=== PATIENT | female | born 1985 | race Caucasian/White ===

== ENCOUNTER 2016-03-01 04:56 | Inpatient (IN) | payer OTHER ==
[2016-03-01] MEDS ORDERED: CEFAZOLIN 1 GM VIAL IV ONE (05:00)
[2016-03-01] MEDS ORDERED: SODIUM CHLORIDE 0.9% 3 ML FLUSH FLUSH PRN ×2 (05:00→08:26)
[2016-03-01] MEDS ORDERED: LR 1,000 ML IV SCH (05:00)
[2016-03-01] MEDS ORDERED: SODIUM CHLORIDE 0.9% 3 ML FLUSH FLUSH SCH (05:00)
[2016-03-01 05:39] LABS: MPV 7.8 fL (7.4-10.4)
[2016-03-01 05:55] VITALS: BMI 39.9
[2016-03-01] MEDS: LR 1,500 ML IV ONE ×2 (05:58→07:06)
[2016-03-01] MEDS ORDERED: MEPERIDINE 25 MG/ML TUBEX IV PRN (06:29)
[2016-03-01] MEDS ORDERED: HYDROmorphone 1 MG INJECTION IV PRN ×2 (06:29)
[2016-03-01] MEDS ORDERED: FENTANYL 100 MCG/2 ML VIAL IV PRN ×2 (06:29)
[2016-03-01] MEDS ORDERED: hydrALAZINE 20 MG/ML VIAL IV PRN (06:29)
[2016-03-01] MEDS ORDERED: ONDANSETRON HCL 4 MG ODT TAB PO PRN (06:29)
[2016-03-01] MEDS ORDERED: LABETALOL 20 MG/4 ML SYRINGE IV PRN (06:29)
[2016-03-01] MEDS ORDERED: ONDANSETRON HCL 4 MG/2 ML VIAL IV PRN ×2 (06:29→08:26)
--- NOTE | 2016-03-01 06:31 | HIM.ANES ---
Anesthesia Evaluation & Plan Diagnoses: HISTORY OF UTERINE SCAR FROM PREVIOUS SURGERY (03/01/16) - Focused Review of Systems Cardiac History: No: Hx Cardiac Disorders HEENT: No: Other HEENT Problems Gastrointestinal: No: Hx Gastrointestinal Disorders Neurological/Musculoskeletal: No: Hx Neurological Disorders Psychological: No Hx Mental/Emotional Disorders Endocrine: Yes: Hx Diet Controlled Diabetes Blood/Autoimmune: No: Hx Blood Transfusions, Hx Anemia, Hx AIDS, Hx Sickle Cell Disease Smoking Status: Never smoker Past Social History: Denies: Alcohol Use Hx Stress Test (date): No Hx Echocardiogram (date): No Hx Chest Xray (date): No - Focused Physical Exam NPO since: MIDNIGHT Mallampati: Class II Thyromental Distance: Greater than 3 Neck: Full Range of Motion Dental: Normal - no significant findings Cardiovascular/Chest: Normal Respiratory: Lungs clear Any problems with anesthesia, including nausea and vomiting?: No Any relatives with a history of Malignant Hyperthermia?: No Beta Juan A given (if appropriate): N/A Other: CBC/BMP/Other 03/01/16 05:20 Allergies Allergy/AdvReac Type Severity Reaction Status Date / Time flu vaccine 2010- Allergy Unknown/See Verified 03/01/16 05:26 *RETIRED-07/20/12 Comments [flu vaccine [id number](18 yr +)] Home Medications Medication Instructions Recorded Last Taken Type Vits W-Ca,Fe,FA(<1Mg) 1 each PO 03/01/16 02/29/16 12:00 History [] Height and Weight Patient's height 5 ft 4 in Patient's weight 110.677 kg BMI 39.9 Vital Signs Temperature 98.1 F 03/01/16 06:15 Pulse Rate 86 03/01/16 06:15 Respiratory Rate 18 03/01/16 06:15 Blood Pressure 171/95 03/01/16 06:15 Pulse Oxygen Saturation 99 03/01/16 06:15 - Anesthetic Plan Anesthesia Type: Spinal ASA Class: 2 -: I have examined this patient and reviewed the medical record. The patient has been assessed prior to anesthesia. Risks and benefits of anesthesia and anesthetic technique options have been discussed and all questions answered. The patient accepts the risk and desires me to proceed with the planned anesthetic.
[2016-03-01] MEDS ORDERED: Vaccine Screening Complete SCH (07:00)
--- NOTE | 2016-03-01 07:04 | SC.ANESPOS ---
Post-Anesthesia Note LOC: Fully Awake Post-Anesthesia Assessment: Awake, Returned to Baseline, Hemodynamically Stable , Pain Control Adequate Phase I & II Recovery Complete: Yes (Spinal resolving) Apparent Anesthesia Complication: No : N - Vital Signs Blood Pressure: 171/95 Pulse: 86 Resp Rate: 18 O2 Sat: 99 Temp: 98.1 F
--- NOTE | 2016-03-01 07:15 | HISTPHYS ---
- HISTORY OF PRESENT ILLNESS Age: 30 Estimated Due Date: 03/08/16 Gestational Age: 39 : 2 Para: 1 Patient Presents to:: Labor & Delivery Presents for:: Current : No Complications - REVIEW OF SYSTEMS Reports/Denies: Denies: Complaints Pain: Reports: None - ALLERGIES Allergies Allergy/AdvReac Type Severity Reaction Status Date / Time flu vaccine 2010- Allergy Unknown/See Verified 03/01/16 05:26 *RETIRED-07/20/12 Comments [flu vaccine [id number](18 yr +)] - CURRENT MEDICATIONS Home Medication List Vits W-Ca,Fe,FA(<1Mg) [] 1 each PO 03/01/16 [History] - PAST MEDICAL HISTORY Reports: No Significant History - PAST SURGICAL HISTORY Reports: Section - FAMILY HISTORY Family History: Noncontributory - SOCIAL HISTORY Smoking Status: Never smoker Social History: Denies: Amphetamine Use, Alcohol Use, Barbiturate Use, Benzodiazipine Use, Cocaine Use, Heroin Use, Marijuana Use, Methadone Use, MDMA (Ecstasy) Use, Substance Use Disorder - GENITOURINARY HISTORY HX : 2 Para: 1 Live Deliveries (# of pregnancies resulting in a live ): 1 1 Sex: Female Weight: 8-4 Weeks Gestation: 39-5 Complications with or Delivery: Reports: Diabetes, High Blood Pressure - PHYSICAL EXAM Vital Signs:: Temperature: 98.1 F (03/01/16 07:04) HR: 86 (03/01/16 07:04) RR: 18 (03/01/16 07:04) BP: 171/95 (03/01/16 07:04) Pulse Ox: 99 (03/01/16 07:04) GENERAL: Alert, Oriented, No Acute Distress HEENT: Normal CARDOVASCULAR/CHEST: Normal RESPIRATORY: Normal - CTA ABDOMEN: Gravid Fundal Height (cm): 39 GENITOURINARY: Normal. negative: Lesions MUSCULOSKELETAL: Normal EXTERMITIES: Moves All Extremeties. negative: Edema - ASSESSMENT (ACTIVE PROBLEMS) (1) Term Acute Z34.80 - ENCOUNTER FOR SUPRVSN OF NORMAL , UNSP TRIMESTER (2) Previous delivery affecting Acute O34.219 - MATERNAL CARE FOR UNSP TYPE SCAR FROM PREVIOUS DEL - PLAN Admit Other Plan: 30 yo at term presents for repeat ltcs and btl. Admit, proceed with surgery .
[2016-03-01 07:41] LABS: SEG NEUTROPHIL 66 % (45-76)
[2016-03-01] MEDS ORDERED: OXYTOCIN 1,000 ML IV ONE ×2 (08:13→08:26)
[2016-03-01] MEDS ORDERED: HYDROmorphone 50 ML IV ONE (08:13)
[2016-03-01] MEDS ORDERED: LANOLIN OINTMENT 0.25 OZ TUBE TOP ONE (08:23)
[2016-03-01] MEDS ORDERED: ZOLPIDEM TARTRATE 5 MG TAB PO PRN (08:26)
[2016-03-01] MEDS ORDERED: HYDROmorphone 50 ML IV PRN (08:26)
[2016-03-01] MEDS ORDERED: OXYCODONE HCL 5 MG TABLET PO PRN (08:26)
[2016-03-01] MEDS ORDERED: LANOLIN OINTMENT 0.25 OZ TUBE TOP PRN (08:26)
[2016-03-01] MEDS ORDERED: Pharmacy Order Set Alert SCH (09:00)
--- NOTE | 2016-03-01 09:33 | HIMOPRPT ---
DATE OF PROCEDURE: DATE OF PROCEDURE: 03/01/16 PREOPERATIVE DIAGNOSIS: 1. Intrauterine at [39 weeks]. 2. Previous desires repeat. 3. Desires permanent sterilization. POSTOPERATIVE DIAGNOSIS: 1. Intrauterine at [39 weeks]. 2. Previous desires repeat. 3. Desires permanent sterilization. PROCEDURE: Repeat low transverse via Pfannenstiel incision. Bilateral tubal ligation via modified Loly method. SURGEON: Elida Doss MD. ANESTHESIA: [spinal] FINDINGS: Vigorous [female] , [7] pounds [8] ounces with Apgars of [8] and [9]. COMPLICATIONS: None. ESTIMATED BLOOD LOSS: 500 mL. URINE OUTPUT: [200] mL of clear urine. PROCEDURE IN DETAIL: Patient was taken to the operating room, anesthesia found be adequate. She was prepped and draped in a usual sterile fashion with left lateral tilt. A Pfannenstiel incision was made with scalpel, carried down to the fascia. The fascia was nicked in midline and the incision extended laterally with Peraza scissors. The fascia was elevated up, dissected off rectus muscles. Rectus muscles were in midline, peritoneum was identified and entered. Peritoneal incision was extended superiorly and inferiorly with good visualization of bladder. Bladder flap was created with blunt sharp dissection. The lower uterine segment was incised in transverse fashion with scalpel extended bluntly. Infant's head was delivered atraumatically. The nose and mouth were suctioned bulb suction. Cord clamped and cut and infant handed off to awaiting nursery personnel. Placenta was removed. The uterus was exteriorized and cleared of all clots. The uterine incision was closed with #1 chromic at this time. Attention turned to fallopian tubes where a 3 centimeter segment was suture ligated with 0 plain gut suture and excised. The uterus was returned to the abdomen. Hemostasis verified. Tubal sites were intact and hemostatic. Clots removed from the gutters. The fascia was closed with 0 PDS. Subcuticular fat was closed with 0 plain gut suture. Skin was closed with 4-0 monocryl in subcuticular fashion. Dermabond was applied to the skin site. Sponge, laps, and counts correct x2. The patient tolerated well. ANESTHESIA: Spinal Anesthesia
--- NOTE | 2016-03-01 09:34 | OBDELNOTE ---
Delivery Note - Problem/Diagnosis (1) Term Status: Acute (2) Previous delivery affecting Status: Acute (3) delivery delivered Status: Acute (4) Single live Status: Acute (5) Sterilization Status: Acute - Admitting Diagnosis Reason for Visit: Admission Date: 03/01/16 Admission time: 05:43 Gestational Age: 39 - Procedures Procedure(s): Non-Stress Test Labor Anesthesia/Analgesia: Spinal Anesthesia Date: 03/01/16 Vacuum Assist Delivery Presentation: Vertex Episiotomy: None Laceration: None : Repeat Reason: Prior Low Transverse Section Skin Incision: Pfannenstiel Uterine Incision: Low Transverse EBL: 500 Other Intrapartum Procedures: Tubal Ligation Fluid: Clear Placenta: Manual Removal Description: Normal Cord: 3 Vessels - Procedures Procedures: None - Data Sex: Female Weight: 3.402 kg (1min): 8 (5min): 9 Feeding Plans for Infant: Breast Complications: No Complications to:: LDRP/Mother's Room - /Operative Complications /Op Complications: None Discharge Planning - REASON FOR ADMISSION Patient Presents to:: Labor & Delivery Reason for Visit: - DISCHARGE INSTRUCTIONS
--- NOTE | 2016-03-01 09:35 | PCM.DCS92 ---
<Elida Doss - Last Filed: 03/01/16 09:34> - Primary/Secondary Discharge Diagnoses (1) Term Acute Z34.80 - ENCOUNTER FOR SUPRVSN OF NORMAL , UNSP TRIMESTER (2) Previous delivery affecting Acute O34.219 - MATERNAL CARE FOR UNSP TYPE SCAR FROM PREVIOUS DEL (3) delivery delivered Acute O82 - ENCOUNTER FOR DELIVERY WITHOUT INDICATION (4) Single live Acute Z37.0 - SINGLE LIVE (5) Sterilization Acute Z30.2 - ENCOUNTER FOR STERILIZATION - HOSPITAL COURSE /Op Complications: None - DISCHARGE INSTRUCTIONS Discharge Disposition: Home Discharge Condition: Good Cognitive Discharge Status: Unimpaired Fuctional Discharge Status: Independent Patient Leaving with Prescriptions?: Yes Home Medications/ New Prescriptions: New Ibuprofen Tablet [Motrin] 800 mg PO TID #30 tab Oxycodone Immediate Release [Oxycodone Immediate Release (OxyIR)] 5 mg PO Q4H PRN #30 tab PRN Reason: Pain Nifedipine [Procardia Xl] 30 mg PO DAILY #30 tab.er.24 Continue Vits W-Ca,Fe,FA(<1Mg) [] 1 each PO Referrals: Elida Doss MD [Staff Physician] - 03/15/16 9:45 am - Diet Diet at Discharge: Regular - Activity Activity: Pelvic Rest, No Driving No Driving for: 2 weeks - Instructions Call Physician for: Sudden/Sever Chest Pain, Foul Smelling Discharge, Pain/ Redness in Calf/Leg, Temperature Above 100.4, Drainiage from Wound Additional Instructions: Come to office tomorrow for blood pressure check - DC Summary Notes Discharge Medications: *See "Discharge Medication List" for a complete list of Home Medications and Discharge Medications.* Obstetric Hospital Course - Admitting Diagnosis Reason for Visit: Admission Date: 03/01/16 Admission time: 05:43 Gestational Age: 39 - Procedures Procedure(s): Non-Stress Test Labor Anesthesia/Analgesia: Spinal Anesthesia Date: 03/01/16 Vacuum Assist Delivery Presentation: Vertex Episiotomy: None Laceration: None : Repeat for: Previous Uterine Surgery Skin Incision: Pfannenstiel Uterine Incision: Low Transverse EBL: 500 Fluid: Clear Placenta: Manual Removal Description: Normal Cord: 3 Vessels - Procedures Procedures: None - Infant Data Infant Sex: Female Weight: 3.402 kg (1min): 8 (5min): 9 Feeding Plans for Infant: Breast Complications: No Complications [place] to:: LDRP/Mother's Room - /Operative Complications /Op Complications: None <Cortney Salazar - Last Filed: 03/03/16 17:21> - Primary/Secondary Discharge Diagnoses (1) care following delivery Acute Z39.2 - ENCOUNTER FOR ROUTINE FOLLOW-UP - Incision Incision, Lacerations, or Tears: Yes - DC Summary Notes Discharge Medications: *See "Discharge Medication List" for a complete list of Home Medications and Discharge Medications.*
[2016-03-01] MEDS ORDERED: OXYTOCIN 10 UNITS/ML VIAL IM ONE (10:00)
[2016-03-01] MEDS ORDERED: ONDANSETRON HCL 4 MG/2 ML VIAL IV ONE (10:00)
[2016-03-01] MEDS ORDERED: BUPIVACAINE 0.75%/DEXTROSE 8.25% AMPULE EPI ONE (10:00)
[2016-03-01] MEDS: IBUPROFEN 800 MG TAB PO SCH ×2 (12:00→18:55)
--- NOTE | 2016-03-01 13:56 | SC.ANESPOS ---
Post-Anesthesia Note LOC: Fully Awake Post-Anesthesia Assessment: Awake, Returned to Baseline, Hemodynamically Stable , Pain Control Adequate Phase I & II Recovery Complete: Yes Apparent Anesthesia Complication: No : N - Vital Signs Blood Pressure: 128/70 Pulse: 70 Resp Rate: 18 O2 Sat: 99 Temp: 98.1 F
[2016-03-01] MEDS: LR 1,000 ML IV SCH (16:22)
[2016-03-02] MEDS: IBUPROFEN 800 MG TAB PO SCH ×5 (00:07→23:54)
[2016-03-02] MEDS: LR 1,000 ML IV SCH (00:51)
[2016-03-02] MEDS: OXYCODONE HCL 5 MG TABLET PO PRN ×4 (08:23→22:21)
--- NOTE | 2016-03-02 08:36 | OBGYNPROG ---
- Subjective Post Op Day: 1 Reports: Tolerating Regular Diet, Voiding Freely, Passing Flatus, Moderate Lochia. Denies: Complaints Pain: Reports: Well Managed - Objective Vital Signs: Temperature: 98 F (03/02/16 05:59) HR: 77 (03/02/16 05:59) RR: 18 (03/02/16 07:55) BP: 125/63 (03/02/16 05:59) Pulse Ox: 99 (03/01/16 13:56) General: Alert, Oriented, No Acute Distress Cardiovascular/Chest: Normal. negative: Tachycardia, Irregular Respiratory: Normal - CTA. negative: Rales, Rhonchi, Wheezes ABDOMEN: Bowel Sounds Present, Non-Distended, Soft, Tender (Appropriately) Abdominal Incision: Incision Clean/Dry/Intact Fundus: At Umbilicus, Firm Lochia: Moderate EXTERMITIES: Moves All Extremeties. Denies: Pain/Tenderness OBGYN Progress Note - ASSESSMENT (1) delivery delivered Status: Acute Code(s): O82 - ENCOUNTER FOR DELIVERY WITHOUT INDICATION Comment: Doing well - PLAN Routine Care
[2016-03-02] MEDS: DOCUSATE-SENNA CONCENTRATE TAB PO SCH ×2 (11:42→22:21)
[2016-03-03] MEDS: OXYCODONE HCL 5 MG TABLET PO PRN (05:17)
[2016-03-03] MEDS: SODIUM CHLORIDE 0.9% 3 ML FLUSH FLUSH SCH (05:34)
[2016-03-03] MEDS: IBUPROFEN 800 MG TAB PO SCH ×3 (06:02→17:45)
[2016-03-03 06:06] VITALS: TEMP 98.4
[2016-03-03] MEDS: DOCUSATE-SENNA CONCENTRATE TAB PO SCH (08:57)
[2016-03-03] MEDS ORDERED: ACETAMINOPHEN 325 MG/TAB TABLET PO PRN (09:12)
--- NOTE | 2016-03-03 10:10 | OBGYNPROG ---
- Subjective Post Day: 2 Post Op Day: 2 Reports: Ambulating, Out of Bed, Tolerating Regular Diet, Voiding Freely, Light Bleeding, Well. Denies: Headache, Blurred Vision, RUQ Pain, Nausea, Vomitting, Chest Pain, Shortness of Breath Pain: Reports: Well Managed, Incision - Objective Vital Signs: Vital Signs - 24 hr 03/02/16 03/02/16 03/03/16 17:40 19:09 06:05 Temperature 97.7 F 98.4 F Pulse Rate 75 76 80 Respiratory 20 18 Rate Blood Pressure 163/83 169/83 178/85 03/03/16 03/03/16 08:15 09:49 Temperature Pulse Rate 83 83 Respiratory Rate Blood Pressure 163/88 171/83 General: Alert, Oriented, No Acute Distress Cardiovascular/Chest: Normal Respiratory: Normal - CTA ABDOMEN: Bowel Sounds Present, Non-Distended, Non-Tender, Soft Abdominal Incision: Ecchymotic (superior to incision), Dermabond Intact. negative: Redness, Drainage Fundus: U - 1, Firm Bladder: Voiding & Emptying OBGYN Progress Note - ASSESSMENT (1) care following delivery Status: Acute Code(s): Z39.2 - ENCOUNTER FOR ROUTINE FOLLOW-UP - PLAN Routine Care due to persistently elevated blood pressure starting last night, asymptomatic, will start low dose anti hypertensive and possible discharge home later today if blood pressures improve
[2016-03-03] MEDS ORDERED: ONDANSETRON HCL 4 MG ODT TAB PO PRN (13:34)
--- NOTE | 2016-03-03 16:29 | OBGYNPROG ---
Note Patient 's blood pressure has come down to a tolerable range however now the patient feels like her heart is racing. When her blood pressure was being taken pulse was noted to be 140. Upon questioning patient states that she does feels like her heart is racing but has no other symptoms. She denies chest pain , shortness of breath, changes in her vision, nausea, or any other problems. She says she has had a panic attack before in the past but when she had that it was accompanied by chest pain. During evaluation of her I palpated her pulse and is noted to now be 120. For the time being we will monitor the patient a little bit longer and see if the pulse continues to decrease. If it does I am comfortable sending the patient home to come to the office tomorrow for a blood pressure and pulse check. If however it does not come down she may need to stay another night and be discharged home tomorrow. The patient is agreeable to plan. We will re-evaluate the patient in a little while.
[2016-03-03 17:21] VITALS: BP 148/85; PULSE 115
== END 2016-03-03 18:44 | disposition home or self-care (01) | DRG 766 ==
LOC: MASU 04:56 → EDSTATUS 07:15
PROVIDERS: ADMIT Obstetrics & Gynecology; ATTEND Obstetrics & Gynecology
PROC: 0UB70ZZ Excision of Bilateral Fallopian Tubes, Open Approach (ICD-10-PCS; 2016-03-01)
PROC: 10D00Z1 Extraction of Products of Conception, Low, Open Approach (ICD-10-PCS; principal; 2016-03-01 07:15)
DX: O34.211 Maternal care for low transverse scar from previous cesarean delivery (principal); Z30.2 Encounter for sterilization; Z3A.39 39 weeks gestation of pregnancy; Z37.0 Single live birth
CPT/HCPCS: 59025; 85007; 85014; 85018; 85027; 86592; 86850; 86900; 86901; 96360; 96361; 96365; 96366; J0690; J1170; J2405; J2590; J3490; S0020